=== PATIENT | male | born 2000 | race Caucasian/White ===

== ENCOUNTER 2022-08-11 18:51 | Emergency (ER) | payer OTHER, BC, SELFPAY ==
[2022-08-11 18:54] VITALS: BP 124/72; PULSE 64; RESP 17; TEMP 36.4; O2SAT 99
--- NOTE | 2022-08-11 20:55 | ED.EYEPROB ---
HPI - Eye Problem General Chief complaint: Eye Problems <JESÚS Berumen Last Filed: 08/11/22 22:24> Stated complaint: piece of metal in left eye during welding <Magno Negron PA-C - Last Filed: 08/11/22 22:24> Time Seen by Provider: 08/11/22 20:14 <Magno Negron PA-C - Last Filed: 08/11/22 22:24> History of Present Illness HPI Narrative: This is a 22-year-old male who presents to the ED with chief complaint of left eye irritation. Patient works as a arc and gas welder. He was wearing his mask but while he was looking up he felt something start current scratching his eye. Reports irritative/scratching sensation whenever he moves his eye around. Denies significant pain. He reports minimal vision changes in the left eye. Denies photophobia. Denies headache. <Magno Negron PA-C - Last Filed: 08/11/22 22:24> Related Data Allergies/adverse reactions: Allergies Allergy/AdvReac Type Severity Reaction Status Date / Time No Known Allergies Allergy Mild Verified 08/11/22 18:52 <Magno Negron PA-C - Last Filed: 08/11/22 22:24> Review of Systems Review of Systems: CONSTITUTIONAL: Denies fever, chills, or sweats. ENT: Reports left eye irritation. Denies vision changes or photophobia. SKIN: Denies rash or itching. MUSCULOSKELETAL: Denies back pain, joint pain, or myalgia. NEUROLOGIC: Denies headache, numbness, dizziness, or weakness. PSYCHIATRIC: Denies anxiety or depression. <JESÚS Berumen Last Filed: 08/11/22 22:24> Exam Narrative: GENERAL: Well-appearing, well-nourished, and in no acute distress. HEAD: Normocephalic, atraumatic. EYES: PERRLA and EOMI. visual and vásquez intact bilaterally. Upon visual inspection of the left eye, there is noted to be a foreign body at the 12 o'clock position in the upper lid. No other foreign bodies or obvious defects are noted on initial exam. Blakely lamp: No obvious corneal abrasion or ulcer noted. No other foreign bodies are noted. Able to revisualize before noted foreign body. ENT: Nares clear, no rhinorrhea or epistaxis. Mucous membranes moist. Oropharynx without tonsillar hypertrophy exudate or other lesions. SKIN: Warm, dry, no rash. NEURO: Alert and oriented x3. No focal deficits. PSYCH: Normal mood and affect. <Magno Negron PA-C - Last Filed: 08/11/22 22:24> Course ACCREDITATION MANAGER/PA Physician Supervision For this encounter, I have reviewed the mid-level provider documentation, treatment plan and medical decision making. I have had pabd-ri-slia time with the patient. 22-year-old presenting with eye irritation. Physical exam showed a small foreign body that was removed. After foreign body was removed patient had no evidence of corneal abrasion and his symptoms resolved. Currently discharged home with appropriate follow-up. . All questions answered. Patient in agreement w/ disposition. <John Garcia MD - Last Filed: 08/14/22 19:15> Vital Signs Vital signs: Vital Signs Temperature 97.5 F L 08/11/22 18:54 Pulse Rate 64 08/11/22 18:54 Respiratory Rate 17 08/11/22 18:54 Blood Pressure 124/72 08/11/22 18:54 Pulse Oximetry 99 08/11/22 18:54 Oxygen Delivery Room Air 08/11/22 18:54 Temperature 97.5 F L 08/11/22 18:54 Pulse Rate 64 08/11/22 18:54 Respiratory Rate 17 08/11/22 18:54 Blood Pressure 124/72 08/11/22 18:54 Pulse Oximetry 99 08/11/22 18:54 Oxygen Delivery Room Air 08/11/22 18:54 <Magno Negron PA-C - Last Filed: 08/11/22 22:24> Vital Signs Temperature 97.5 F L 08/11/22 18:54 Pulse Rate 64 08/11/22 18:54 Respiratory Rate 17 08/11/22 18:54 Blood Pressure 124/72 08/11/22 18:54 Pulse Oximetry 99 08/11/22 18:54 Oxygen Delivery Room Air 08/11/22 18:54 Temperature 97.5 F L 08/11/22 18:54 Pulse Rate 64 08/11/22 18:54 Respiratory Rate 17 08/11/22 18:54 Blood Pressure 124/72 08/11/22 18:54 Pulse Oximetry 99 08/11/22 18:54 Oxygen Delivery Room
[2022-08-11] MEDS: DACRIOSE EYE IRRIGATION 118 ML BOTTLE (21:40)
[2022-08-11] MEDS: TETRACAINE HCL 0.5% OPHTH SOLN 4 ML BTL 1 DROP LEFT EYE (21:40)
[2022-08-11] MEDS: FLUORESCEIN SOD 1 MG/STRIP LEFT EYE (21:40)
== END 2022-08-11 22:33 | disposition home or self-care (01) ==
PROVIDERS: Emergency Provider Physician Assistant
DX: T15.12XA Foreign body in conjunctival sac, left eye, initial encounter (principal)
CPT/HCPCS: 65205; 65220; 99283; A9270